=== PATIENT | female | born 1965 | race American Indian/Alaskan Native ===

== ENCOUNTER 2018-06-30 22:13 | Emergency (ER) | payer OTHER ==
[~2018-06-30] VITALS: Ht 167.6 cm; Wt 93.0 kg
[~2018-06-30 22:13] MED LIST: AMOXICILLIN875 MG PO; BACLOFEN10 MG PO; CALCIUM 600 +1 EAC1 PO; CALCIUM500 MG PO; CEPHALEXIN500 MG PO; GABAPENTIN300 MG PO; MAG-TAB SR84 MG PO; METHOTREXATE2.5 MG PO; NAPROSYN500 MG PO; NAPROXEN500 MG PO; NORCO 10-325 T1 EACH PO; NORCO 5-325 TA1 EACH PO; TREXALL7.5 MG PO; VALIUM5 MG PO
--- OUTSIDE RECORDS SUMMARY | 2018-06-30 22:16 | XMS ---
PreManage Notification: ELSA ABURTO Security Concrete Rod Buster Events No recent Security Events currently on file CRITERIA MET - [facility] PROVIDERS [facility]ador Treatment Current PHONE: Unknown [facility] Current Orthopedic Surgery \T\ Fracture Clinic PHONE: Unknown Neeta has no Care Guidelines for this patient. Arina VISIT COUNT (12 MO.) Yfn Martino TOTAL 1 NOTE: Visits indicate total known visits. ED/UCC VISIT TRACKING (12 MO.) 06/30/2018 22:[address] [facility] [place] TYPE: Emergency COMPLAINT: - FOOT INJURY INPATIENT VISIT TRACKING (12 MO.) No inpatient visits to display in this time frame [email or web address]
== END 2018-06-30 23:02 | disposition home or self-care (01) ==
LOC: ED 22:13
DX: S92.514A Nondisplaced fracture of proximal phalanx of right lesser toe(s), initial encounter for closed fracture (principal); M06.9 Rheumatoid arthritis, unspecified; Z79.899 Other long term (current) drug therapy; W54.1XXA Struck by dog, initial encounter
CPT/HCPCS: 73630; 99283

== ENCOUNTER 2020-04-25 16:51 | Emergency (ER) | payer OTHER ==
[~2020-04-25] VITALS: Ht 167.6 cm; Wt 90.7 kg
--- OUTSIDE RECORDS SUMMARY | 2020-04-25 16:54 | XMS ---
PreManage Notification: ELSA ABURTO Security Medical File Clerk Events No recent Security Events currently on file CRITERIA MET - [facility] CARE PROVIDERS WALTER CORTEZ Physician Glue Jointer Operator 07/01/2018-Current PHONE: Unknown Neeta has no Care Guidelines for this patient. Care History Medical/Surgical 07/01/2018 [facility] \T\middot;\T\nbsp; PATIENT IS A [employer] MEMBER. \T\middot;\T\nbsp; PLEASE REFER PATIENT TO [facility] FOR NON EMERGENT MEDICAL NEEDS. \T\middot;\ T\nbsp; [facility] CAN SEE PATIENTS SAME DAY FOR APTS IF PATIENT CALLS FIRST THING IN THE MORNING. E.D. VISIT COUNT (12 MO.) [address] [place] [address] TOTAL 1 NOTE: Visits indicate total known visits. ED/UCC VISIT TRACKING (12 MO.) 04/25/2020 16:51 [facility] TYPE: Emergency COMPLAINT: - CHEST PAIN INPATIENT VISIT TRACKING (12 MO.) No inpatient visits to display in this time frame [email or web address]
[2020-04-25] MEDS ORDERED: NEURONTIN300 MG PO (17:00)
[2020-04-25] MEDS ORDERED: TESSALON PERLE100 MG PO (17:59)
--- NOTE | 2020-04-26 17:22 | EKG ---
[facility] [address] [facility] [place], [place] [address] Signed Normal sinus rhythm with sinus arrhythmia Possible Left atrial enlargement Incomplete right bundle branch block Borderline ECG Confirmed by SHAWNA THOMAS DO ([id number]) on 04/26/2020 5:22:21 PM Electronically Signed By: SHAWNA THOMAS DO 04/26/20 1722 PATIENT NAME: ELSA ABURTO Electrocardiogram DATE OF : 65 PHYSICIAN: SHAWNA THOMAS DO REPORT #: [id number] REPORT IS CONFIDENTIAL AND NOT TO BE RELEASED WITHOUT AUTHORIZATION
== END 2020-04-25 18:11 | disposition home or self-care (01) ==
LOC: ED 16:51
DX: J20.9 Acute bronchitis, unspecified (principal); F17.200 Nicotine dependence, unspecified, uncomplicated
CPT/HCPCS: 71046; 80053; 83735; 84484; 85025; 93005; 93010; 96374; 99285-25; J1885

== ENCOUNTER 2021-12-15 11:04 | Emergency (ER) | payer OTHER, BC ==
[~2021-12-15] VITALS: Ht 167.6 cm; Wt 88.8 kg
[~2021-12-15 11:04] MED LIST changes: +NEURONTIN300 MG PO; +TESSALON PERLE100 MG PO
--- OUTSIDE RECORDS SUMMARY | 2021-12-15 11:07 | XMS ---
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 07/30/2021 15:33 - Patient eloped before treatment completed. - Patient with suicidal and/or homicidal ideations eloped. - Patient eloped with IV in place. Details: PATIENT LWBS CRITERIA MET - [facility] CARE PROVIDERS WALTER CORTEZ Physician Salesperson Flying Squad 07/01/2018-Current PHONE: Unknown [facility] 04/26/2020-[facility] PHONE: [phone] Neeta has no Care Guidelines for this patient. Care History Medical/Surgical 07/01/2018 [facility] - PATIENT IS [place] ELIGIBLE, \T\middot;\T\nbsp; PLEASE REFER PATIENT TO [facility] FOR NON EMERGENT MEDICAL NEEDS. \T\middot;\T\nbsp; [facility] CAN SEE PATIENTS SAME DAY FOR APTS IF PATIENT CALLS FIRST THING IN THE MORNING. Arina VISIT COUNT (12 MO.) 2 [facility] TOTAL 2 NOTE: Visits indicate total known visits. ED/UCC VISIT TRACKING (12 MO.) 12/15/2021 11:05 [facility] TYPE: Emergency COMPLAINT: - HEAD INJURY 07/30/2021 15:[address] [facility] [place] TYPE: Emergency COMPLAINT: - MULTIPLE COMPLAINTS INPATIENT VISIT TRACKING (12 MO.) No inpatient visits to display in this time frame [email or web address]
[2021-12-15] MEDS ORDERED: PREGABALIN150 MG PO (13:20)
[2021-12-15] MEDS ORDERED: PERCOCET 5-3251 EACH PO (15:11)
== END 2021-12-15 15:32 | disposition home or self-care (01) ==
LOC: ED 11:04
DX: S06.0X0A Concussion without loss of consciousness, initial encounter (principal); F17.200 Nicotine dependence, unspecified, uncomplicated; W01.0XXA Fall on same level from slipping, tripping and stumbling without subsequent striking against object, initial encounter
CPT/HCPCS: 70450; 99283-25